=== PATIENT | male | born 1955 | race Caucasian/White ===

== ENCOUNTER 2018-03-03 11:18 | Emergency (ER) | payer OTHER ==
[~2018-03-03] VITALS: Ht 182.9 cm; Wt 97.3 kg
[2018-03-03] MEDS ORDERED: CEPH-572 PO (12:58)
[2018-03-03 13:15] VITALS: BP 104/64
== END 2018-03-03 13:17 | disposition home or self-care (01) ==
LOC: ER 11:19
DX: L53.8 Other specified erythematous conditions (principal); T81.40XA Infection following a procedure, unspecified, initial encounter; I10 Essential (primary) hypertension; F17.200 Nicotine dependence, unspecified, uncomplicated; Z98.890 Other specified postprocedural states; Y92.9 Unspecified place or not applicable
CPT/HCPCS: 93005; 99283

== ENCOUNTER 2018-03-27 13:19 | Inpatient (IN) | payer OTHER ==
[~2018-03-27] VITALS: Ht 182.9 cm; Wt 90.0 kg
[2018-03-27] MEDS ORDERED: aspirin 81mg tab.chew PO ONE (13:20)
[2018-03-27 13:48] LABS: BASOPHILS % (AUTO) 0.1 % (0-1); EOSINOPHILS % (AUTO) 0.1 % (0-6); HEMATOCRIT 33.2 % (42.0-52.0); HEMOGLOBIN 10.6 g/dl (14.0-17.9); MEAN CORPUSCULAR HEMOGLOBIN 27.5 PG (27.0-31.0); MEAN CORPUSCULAR HGB CONC 32.1 % (33.0-36.5); MEAN CORPUSCULAR VOLUME 85.8 FL (78-98); MEAN PLATELET VOLUME 8.6 FL (7.4-10.4); MONOCYTES # (AUTO) 1.5 X10'3 (0-0.9); MONOCYTES % (AUTO) 7.5 % (2-12); NEUTROPHILS # (AUTO) 17.3 X10'3 (1.8-7.7); NEUTROPHILS % (AUTO) 87.3 % (42-75); PLATELET COUNT 461 X10'3 (140-440); RED BLOOD COUNT 3.87 X10'6 (4.70-6.10); RED CELL DISTRIBUTION WIDTH 17.2 % (11.5-14.5); WHITE BLOOD COUNT 19.8 X10'3 (4.5-11.0)
[2018-03-27 14:10] LABS: ALANINE AMINOTRANSFERASE 21 U/L (12-78); ALBUMIN 3.3 G/DL (3.4-5.0); ALBUMIN/GLOBULIN RATIO 0.6 (1.1-1.5); ALKALINE PHOSPHATASE 96 IU/L (46-116); ANION GAP 14 (8-16); ASPARTATE AMINO TRANSFERASE 10 U/L (10-37); BILIRUBIN,TOTAL 0.8 MG/DL (0.1-1.0); BLOOD UREA NITROGEN 39 MG/DL (7-18); BUN/CREATININE RATIO 21.4 (5.4-32.0); CALCIUM 9.6 MG/DL (8.5-10.1); CHLORIDE 97 MMOL/L (99-107); CREATININE 1.82 MG/DL (0.60-1.10); GLUCOSE 110 MG/DL (70-104); POTASSIUM 3.8 MMOL/L (3.5-5.1); SODIUM 136 MMOL/L (135-145); TOTAL CARBON DIOXIDE 25.1 MMOL/L (24-32); TOTAL PROTEIN 8.4 G/DL (6.4-8.2); eGFR 38 ML/MIN
[2018-03-27 14:11] LABS: MAGNESIUM 1.9 MG/DL (1.5-2.4)
[2018-03-27 14:11] LABS: D-DIMER 4.24 MG/L FEU (0-0.50)
[2018-03-27] MEDS ORDERED: vancomycin inj 1,000 MG in normal saline 250ml IV soln 250 ML IV STA (14:56)
[2018-03-27] MEDS ORDERED: piperacillin/tazo 3.375gm/50ml 50 ML IV ONE (15:00)
[2018-03-27] MEDS ORDERED: vancomycin/NS 1 GM ADD-VANTAGE 250 ML IV ONE (15:05)
[2018-03-27] MEDS ORDERED: METO50TA17 PO (15:18)
[2018-03-27] MEDS ORDERED: FURO40TA4 PO (15:18)
[2018-03-27] MEDS ORDERED: AMIO200T36 PO (15:18)
[2018-03-27] MEDS ORDERED: thyroid (15:18)
[2018-03-27] MEDS ORDERED: POTA10TA19 PO (15:18)
[2018-03-27] MEDS ORDERED: LOSA1TAB9 PO (15:18)
--- NOTE | 2018-03-27 15:42 | NUR ---
lab called to confirm blood culture draw
[2018-03-27] MEDS ORDERED: normal saline 1000ML IV soln IVB ONE ×2 (17:05→18:40)
[2018-03-27] MEDS ORDERED: magnesium Cl slow-release 64mg tablet PO PRN (18:40)
[2018-03-27] MEDS ORDERED: sodium phosphate inj. 30 MMOL in dextrose 5%-water 250 ML IV PRN (18:40)
[2018-03-27] MEDS ORDERED: ondansetron/PF 4mg/2ml inj IV PRN (18:40)
[2018-03-27] MEDS ORDERED: morphine 4 MG/ML inj SYRINge IV PRN (18:40)
[2018-03-27] MEDS ORDERED: potassium Cl 20 mEq SR tablet PO PRN (18:40)
[2018-03-27] MEDS ORDERED: Neutra Phos packet PO PRN (18:40)
[2018-03-27] MEDS ORDERED: sodium phosphate inj. 15 MMOL in dextrose 5%-water 150 ML IV PRN (18:40)
[2018-03-27] MEDS ORDERED: magnesium 4gm in 100ml NS 100 ML IV PRN ×2 (18:40→19:00)
[2018-03-27] MEDS ORDERED: acetaminophen 325mg tablet PO PRN ×2 (18:40)
--- NOTE | 2018-03-27 18:54 | NUR ---
rn camp at bedside
[2018-03-27] MEDS ORDERED: POTASSIUM 40MEQ/500ML NS *****PERIPHERAL LINE REPLACE IV PRN (19:00)
[2018-03-27] MEDS ORDERED: magnesium 2 GM in 50ml IV PRN (19:00)
[2018-03-27] MEDS: K, MAG and/or Phos replacement - Verify level? MC SCH (19:00)
[2018-03-27] MEDS ORDERED: LEVO150T PO (19:05)
[2018-03-27] MEDS: pantoprazole 40 MG vial IV SCH (19:55)
[2018-03-27 20:07] LABS: CLARITY,URINE CLEAR (Clear); COLOR,URINE YELLOW (Yellow); GLUCOSE, URINE NEGATIVE (Neg); KETONES,URINE NEGATIVE (Neg); LEUKOCYTE ESTERASE ,URINE NEGATIVE (Neg); NITRITES, URINE NEGATIVE (Neg); OCCULT BLOOD,URINE TRACE-INTACT (Neg); PH,URINE 5.5 (4.8-8.0); PROTEIN,URINE NEGATIVE (Neg); UA COLLECTION TYPE CLN CATCH MIDSTREAM; UROBILINOGEN,URINE 0.2 E.U/dL (0.2-1.0)
[2018-03-27 20:18] LABS: BACTERIA,URINE NONE SEEN /HPF (Neg); MUCUS STRANDS MODERATE /LPF (Neg); RBC,URINE 0-2 /HPF (0-2); SQUAMOUS EPITHELIAL CELL,UR FEW /LPF (FEW); WBC,URINE 0-4 /HPF (0-4)
[2018-03-27] MEDS ORDERED: LEVO150T8 PO (20:43)
[2018-03-27] MEDS ORDERED: vancomycin/NS 1 GM ADD-VANTAGE 250 ML X 1 DOSE IV ONE (21:15)
--- NOTE | 2018-03-27 21:41 | NUR ---
Patient in room ED 10. I have received report from KOBY Duran in the ER and had the opportunity to ask questions and assume patient care.
--- NOTE | 2018-03-27 22:00 | NUR ---
Patient arrived from ER on a gurney and was able to ambulate w/o help to the hospital bed. He is A&O x4, MCKEON and is appropriate. I will continue to monitor.
[2018-03-27 22:04] VITALS: BP 93/57
[2018-03-27] MEDS: normal saline 1000ml 1,000 ML IV SCH (22:52)
[2018-03-27 23:00] VITALS: BP 79/52
[2018-03-28] VITALS (24 sets, daily range): BP systolic 73–141; BP diastolic 49–76
[2018-03-28] MEDS: piperacillin/tazo 3.375gm/50ml 50 ML IV SCH ×4 (02:37→19:30)
[2018-03-28] MEDS: normal saline 1000ml 1,000 ML IV SCH ×3 (03:23→19:30)
--- NOTE | 2018-03-28 06:17 | NUR ---
Problems reprioritized. Patient report given, questions answered & plan of care reviewed with KOBY Oates.
--- NOTE | 2018-03-28 06:31 | NUR ---
Patient in room CICU 2006. I have received report from KOBY Brito and had the opportunity to ask questions and assume patient care.
[2018-03-28 06:36] LABS: BASOPHILS % (AUTO) 0.2 % (0-1); EOSINOPHILS # (AUTO) 0.1 X10'3 (0-0.9); EOSINOPHILS % (AUTO) 0.5 % (0-6); HEMATOCRIT 25.6 % (42.0-52.0); HEMOGLOBIN 8.1 g/dl (14.0-17.9); LYMPHOCYTES # (AUTO) 0.7 X10'3 (1.1-4.8); LYMPHOCYTES % (AUTO) 6.9 % (21-51); MEAN CORPUSCULAR HGB CONC 31.5 % (33.0-36.5); MEAN CORPUSCULAR VOLUME 85.7 FL (78-98); MONOCYTES # (AUTO) 1.1 X10'3 (0-0.9); MONOCYTES % (AUTO) 10.1 % (2-12); NEUTROPHILS # (AUTO) 8.8 X10'3 (1.8-7.7); NEUTROPHILS % (AUTO) 82.3 % (42-75); PLATELET COUNT 190 X10'3 (140-440); RED BLOOD COUNT 2.99 X10'6 (4.70-6.10); RED CELL DISTRIBUTION WIDTH 16.8 % (11.5-14.5); WHITE BLOOD COUNT 10.7 X10'3 (4.5-11.0)
[2018-03-28 06:42] LABS: ALANINE AMINOTRANSFERASE 15 U/L (12-78); ALBUMIN 2.3 G/DL (3.4-5.0); ALBUMIN/GLOBULIN RATIO 0.6 (1.1-1.5); ALKALINE PHOSPHATASE 79 IU/L (46-116); ANION GAP 14 (8-16); ASPARTATE AMINO TRANSFERASE 8 U/L (10-37); BILIRUBIN,TOTAL 0.5 MG/DL (0.1-1.0); BLOOD UREA NITROGEN 37 MG/DL (7-18); BUN/CREATININE RATIO 23.6 (5.4-32.0); CALCIUM 8.1 MG/DL (8.5-10.1); CHLORIDE 104 MMOL/L (99-107); CREATININE 1.57 MG/DL (0.60-1.10); GLUCOSE 101 MG/DL (70-104); MAGNESIUM 1.8 MG/DL (1.5-2.4); PHOSPHORUS 3.4 MG/DL (2.3-4.5); POTASSIUM 3.1 MMOL/L (3.5-5.1); SODIUM 139 MMOL/L (135-145); TOTAL CARBON DIOXIDE 21.1 MMOL/L (24-32); TOTAL PROTEIN 6.4 G/DL (6.4-8.2); eGFR 45 ML/MIN
[2018-03-28 07:17] LABS: TOTAL CELLS COUNTED 100
[2018-03-28 07:18] LABS: ANISOCYTOSIS 1+; PLATELET ESTIMATE NORMAL
[2018-03-28] MEDS: pantoprazole 40 MG vial IV SCH (07:53)
[2018-03-28] MEDS: K, MAG and/or Phos replacement - Verify level? MC SCH (07:53)
[2018-03-28] MEDS ORDERED: vancomycin/NS 1 GM ADD-VANTAGE 250 ML IV SCH (08:00)
[2018-03-28] MEDS: potassium Cl 20 mEq SR tablet PO PRN ×2 (08:02→21:34)
[2018-03-28] MEDS: vancomycin inj 1,250 MG in normal saline 250ml IV soln 250 ML IV SCH ×2 (09:54→21:34)
[2018-03-28] MEDS ORDERED: pneumococcal 23-VAL P-sac vacc 25 mcg/0.5ml vial IMVAC ONE (10:00)
--- NOTE | 2018-03-28 10:45 | NUR ---
Dr Esteevs and critical care team at bedside. Discussed patient status. He states he would like to see pt's blood pressure increased a little before he transfers him upstairs. He also states he wants to see BUN/Cr improved before he thinks about ordering another CT with contrast. States to continue hydration, start synthroid back up, ambulate and watch BP.
--- NOTE | 2018-03-28 13:15 | NUR ---
Dr Esteves made aware that BP has been more consistently in the 100s since this morning, per his request for update. States that pt is okay to be transferred to another floor and he will put in orders.
--- NOTE | 2018-03-28 14:28 | NUR ---
Malnutrition consult. Patient presents with no edema, no muscle weakness, eating well 75-100% of heart healthy diet. Appears well nourished with no visible fat or muscle wasting. Reports weight loss of 2-13 lbs recently. Noted that patient recently had increased dose of lasix prescribed to him three days prior to admission. Some weight loss likely r/t fluids from lasix. No malnutrition at this time. Will continue to follow. Addendum: 03/28/18 at [address] Amended: Links added.
--- NOTE | 2018-03-28 16:30 | NUR ---
Dr Gutierres at bedside and I told him that Dr Ruiz had rounded earlier in the afternoon and recommended that patient does not need to have repeat CT at this point per images, and asked me to pass on that information to Dr Esteves. Dr Esteves received information.
--- NOTE | 2018-03-28 18:26 | NUR ---
Problems reprioritized. Patient report given, questions answered & plan of care reviewed with KOBY Brito.
--- NOTE | 2018-03-28 18:47 | NUR ---
Patient in room CICU 2006. I have received report from KOBY Oates and had the opportunity to ask questions and assume patient care. Patient is A&O x4, MCKEON and is sitting up in chair eating dinner. I will continue to monitor.
[2018-03-28] MEDS: lactobacillus rhamnosus 10,000 MMU CELLS/CAPSULE PO SCH (19:30)
[2018-03-28] MEDS: morphine 4 MG/ML inj SYRINge IV PRN (22:35)
[2018-03-29] VITALS (13 sets, daily range): BP systolic 86–118; BP diastolic 58–84
[2018-03-29] MEDS: piperacillin/tazo 3.375gm/50ml 50 ML IV SCH ×2 (02:12→08:00)
[2018-03-29] MEDS: morphine 4 MG/ML inj SYRINge IV PRN (03:05)
[2018-03-29] MEDS: normal saline 1000ml 1,000 ML IV SCH ×2 (03:23→11:23)
[2018-03-29 05:28] LABS: BASOPHILS % (AUTO) 0.5 % (0-1); EOSINOPHILS # (AUTO) 0.3 X10'3 (0-0.9); HEMOGLOBIN 8.6 g/dl (14.0-17.9); LYMPHOCYTES # (AUTO) 0.7 X10'3 (1.1-4.8); LYMPHOCYTES % (AUTO) 8.4 % (21-51); MEAN CORPUSCULAR HEMOGLOBIN 27.3 PG (27.0-31.0); MEAN CORPUSCULAR HGB CONC 31.9 % (33.0-36.5); MEAN CORPUSCULAR VOLUME 85.4 FL (78-98); MEAN PLATELET VOLUME 10.1 FL (7.4-10.4); MONOCYTES % (AUTO) 11.9 % (2-12); NEUTROPHILS # (AUTO) 6.6 X10'3 (1.8-7.7); NEUTROPHILS % (AUTO) 76.2 % (42-75); PLATELET COUNT 175 X10'3 (140-440); RED BLOOD COUNT 3.17 X10'6 (4.70-6.10); RED CELL DISTRIBUTION WIDTH 16.7 % (11.5-14.5); WHITE BLOOD COUNT 8.7 X10'3 (4.5-11.0)
[2018-03-29 05:42] LABS: ALANINE AMINOTRANSFERASE 20 U/L (12-78); ALBUMIN 2.3 G/DL (3.4-5.0); ALBUMIN/GLOBULIN RATIO 0.5 (1.1-1.5); ALKALINE PHOSPHATASE 106 IU/L (46-116); ANION GAP 12 (8-16); ASPARTATE AMINO TRANSFERASE 16 U/L (10-37); BILIRUBIN,TOTAL 0.6 MG/DL (0.1-1.0); BLOOD UREA NITROGEN 18 MG/DL (7-18); BUN/CREATININE RATIO 15.4 (5.4-32.0); CALCIUM 8.3 MG/DL (8.5-10.1); CHLORIDE 106 MMOL/L (99-107); CREATININE 1.17 MG/DL (0.60-1.10); GLUCOSE 104 MG/DL (70-104); MAGNESIUM 1.8 MG/DL (1.5-2.4); POTASSIUM 3.8 MMOL/L (3.5-5.1); SODIUM 141 MMOL/L (135-145); TOTAL CARBON DIOXIDE 23.3 MMOL/L (24-32); TOTAL PROTEIN 6.6 G/DL (6.4-8.2); eGFR 63 ML/MIN
--- NOTE | 2018-03-29 06:36 | NUR ---
Problems reprioritized. Patient report given, questions answered & plan of care reviewed with KOBY Viera.
[2018-03-29] MEDS ORDERED: pantoprazole 40mg Tablet.DR PO SCH (07:30)
[2018-03-29] MEDS: K, MAG and/or Phos replacement - Verify level? MC SCH (07:45)
[2018-03-29] MEDS: lactobacillus rhamnosus 10,000 MMU CELLS/CAPSULE PO SCH (07:51)
[2018-03-29] MEDS ORDERED: amiodarone 200mg tablet PO SCH (08:00)
[2018-03-29] MEDS ORDERED: levoTHYROXINE 75mcg tablet PO SCH (08:00)
[2018-03-29] MEDS: vancomycin inj 1,250 MG in normal saline 250ml IV soln 250 ML IV SCH (10:15)
--- NOTE | 2018-03-29 10:19 | NUR ---
patient up and walking with me, we did two laps around the unit and he is now sitting up to the chair with at the bedside also. HR is 88 sinus and BP is 104/61
--- NOTE | 2018-03-29 10:47 | NUR ---
patient will discharge home today per Dr. Esteves, awaiting discharge orders at this time
--- NOTE | 2018-03-29 11:43 | NUR ---
patient discharging home, assisting him getting dressed at the bedside, IV removed
--- NOTE | 2018-03-29 12:01 | NUR ---
Patient discharged home with all belongings and driving patient home, follow up appointment is made with dr lin and discharge instructions and packet provided.
[2018-03-29] MEDS ORDERED: VANCOMYCIN LEVEL IV ONE (21:30)
== END 2018-03-29 13:33 | disposition home or self-care (01) | DRG 872 ==
LOC: ER 13:19 → ED HOLD 18:40 → CICU 2S 21:56
PROVIDERS: ADMIT Physician Assistant; ATTEND Internal Medicine Critical Care Medicine
DX: A41.9 Sepsis, unspecified organism (principal); N17.9 Acute kidney failure, unspecified; J90 Pleural effusion, not elsewhere classified; I95.9 Hypotension, unspecified; K57.90 Diverticulosis of intestine, part unspecified, without perforation or abscess without bleeding; E03.9 Hypothyroidism, unspecified; E86.0 Dehydration; I10 Essential (primary) hypertension; M43.6 Torticollis; Z95.828 Presence of other vascular implants and grafts; Z28.21 Immunization not carried out because of patient refusal; Z79.899 Other long term (current) drug therapy; Z79.890 Hormone replacement therapy; Z86.79 Personal history of other diseases of the circulatory system
CPT/HCPCS: 36415; 71045; 71250; 80053; 81001; 83605; 83735; 83880; 84100; 84145; 84484; 85025; 85379; 87040; 87070; 87502; 87503; 93005; 93306; 93970; 96365; 96368; 99285; C9113; G0378; J2270; J2543; J3370; J7030

== ENCOUNTER 2022-05-24 19:16 | Inpatient (IN) | payer MEDICARE, BC ==
[~2022-05-24] VITALS: Ht 182.9 cm; Wt 90.9 kg
[~2022-05-24 19:16] MED LIST: AMIO200T36 PO; LEVO150T PO
[2022-05-24 20:00] LABS: EOSINOPHILS % (AUTO) 0.1 % (0-6); HEMOGLOBIN 16.3 g/dl (14.0-17.9); LYMPHOCYTES # (AUTO) 0.7 X10'3 (1.1-4.8); MONOCYTES # (AUTO) 1.2 X10'3 (0-0.9); PLATELET COUNT 224 X10'3 (140-440)
[2022-05-24 20:02] LABS: BASOPHILS % (AUTO) 0.2 % (0-1); HEMATOCRIT 48.9 % (42.0-52.0); LYMPHOCYTES % (AUTO) 5.7 % (21-51); MEAN CORPUSCULAR HEMOGLOBIN 31.8 PG (27.0-31.0); MEAN CORPUSCULAR HGB CONC 33.3 g/dL (33.0-36.5); MEAN CORPUSCULAR VOLUME 95.6 FL (78-98); MEAN PLATELET VOLUME 8.8 FL (7.4-10.4); NEUTROPHILS # (AUTO) 10.4 X10'3 (1.8-7.7); RED BLOOD COUNT 5.12 X10'6 (4.70-6.10); RED CELL DISTRIBUTION WIDTH 14.6 % (11.5-14.5); WHITE BLOOD COUNT 12.4 X10'3 (4.5-11.0)
[2022-05-24 20:15] LABS: ALANINE AMINOTRANSFERASE 12 U/L (12-78); ALBUMIN 3.5 G/DL (3.4-5.0); ALBUMIN/GLOBULIN RATIO 0.9 (1.1-1.5); ALKALINE PHOSPHATASE 51 IU/L (46-116); ANION GAP 6 (8-16); ASPARTATE AMINO TRANSFERASE 18 U/L (10-37); BLOOD UREA NITROGEN 17 MG/DL (7-18); BUN/CREATININE RATIO 16.7 (5.4-32.0); CALCIUM 8.7 MG/DL (8.5-10.1); CHLORIDE 101 MMOL/L (99-107); CREATININE 1.02 MG/DL (0.60-1.10); GLUCOSE 112 MG/DL (70-104); POTASSIUM 4.2 MMOL/L (3.5-5.1); SODIUM 136 MMOL/L (135-145); TOTAL CARBON DIOXIDE 28.7 MMOL/L (24-32); TOTAL PROTEIN 7.5 G/DL (6.4-8.2); eGFR 73 ML/MIN
[2022-05-24] MEDS ORDERED: temazepam 15mg capsule PO PRN (21:00)
[2022-05-24] MEDS ORDERED: normal saline 1000ML IV soln IVB ONE (22:50)
[2022-05-24] MEDS ORDERED: ondansetron/PF 4mg/2ml inj IV ONE (22:50)
[2022-05-24] MEDS ORDERED: iohexol 300mg/ml 100ml inj. ONE (22:54)
--- NOTE | 2022-05-24 23:08 | NUR ---
went to CT via w/c and hazardous material technician
[2022-05-24] MEDS ORDERED: magnesium 4gm in 100ml NS 100 ML IV PRN (23:50)
[2022-05-24] MEDS ORDERED: magnesium Cl slow-release 64mg tablet PO PRN (23:50)
[2022-05-24] MEDS ORDERED: potassium Cl 40MEQ/1/2NS 520ml 520 ML IV PRN (23:50)
[2022-05-24] MEDS ORDERED: mag hydrox/Alum hydrox/simeth 30ml oral suspension PO PRN (23:50)
[2022-05-24] MEDS ORDERED: potassium Cl 20 mEq SR tablet PO PRN ×2 (23:50)
[2022-05-24] MEDS ORDERED: bisacodyl 10mg suppository rectal RC PRN (23:50)
[2022-05-24] MEDS ORDERED: HYDROcodone/acetaminophen 5mg/325mg tablet PO PRN (23:50)
[2022-05-24] MEDS ORDERED: acetaminophen 325mg tablet PO PRN ×2 (23:50)
[2022-05-24] MEDS ORDERED: ondansetron/PF 4mg/2ml inj IV PRN (23:50)
[2022-05-24] MEDS ORDERED: magnesium hydroxide 30ml (MOM) UD suspension PO PRN (23:50)
[2022-05-24] MEDS ORDERED: morphine 2 MG/ML inj. syringe IV PRN ×2 (23:50)
[2022-05-25] MEDS: piperacillin/tazo 3.375gm/50ml 50 ML IV SCH ×2 (01:03→08:00)
[2022-05-25] MEDS: normal saline 1000ml 1,000 ML IV SCH ×2 (01:04→08:41)
[2022-05-25] MEDS ORDERED: iohexol 350MG/ML 100ml bottle IV ONE (01:34)
[2022-05-25 02:25] LABS: CLARITY,URINE CLEAR (Clear); COLOR,URINE YELLOW (Yellow); GLUCOSE, URINE NEGATIVE (Neg); KETONES,URINE TRACE mg/dl (Neg); LEUKOCYTE ESTERASE ,URINE NEGATIVE (Neg); NITRITES, URINE NEGATIVE (Neg); OCCULT BLOOD,URINE NEGATIVE (Neg); PH,URINE 6.5 (4.8-8.0); PROTEIN,URINE NEGATIVE (Neg); UROBILINOGEN,URINE 0.2 E.U/dL (0.2-1.0)
[2022-05-25 02:30] LABS: UA COLLECTION TYPE NON-SPECIFIED
[2022-05-25] MEDS ORDERED: APIX5TAB3 PO (05:11)
[2022-05-25] MEDS ORDERED: SOTA80TA73 PO (05:11)
[2022-05-25] MEDS ORDERED: LOSA1TAB41 PO (05:11)
[2022-05-25] MEDS ORDERED: ROSU20TA31 PO (05:11)
[2022-05-25] MEDS ORDERED: TEST200V33 IM (05:12)
[2022-05-25] MEDS ORDERED: CHOL500049 PO (05:12)
[2022-05-25] MEDS ORDERED: docusate sod 100mg capsule PO SCH (08:00)
[2022-05-25] MEDS ORDERED: K and/or MAG REPLACEMENT MC SCH (08:00)
--- NOTE | 2022-05-25 08:25 | NUR ---
spoke to MD Johnson regarding Doctor Hasmukh's consult w/ patient this morning. Per MD Noe, pt was to be given coffee and if pt could pass gas, he was safe for d/c. This information was passed along to MD Johnson- pending MD Johnson to do phone consult with Md Noe and then call hotel staff member back for possible D/C
--- NOTE | 2022-05-25 09:36 | NUR ---
MD Salgado at bedside to cloveral pt for possible d/c Addendum: 05/25/22 at 0950 by MARIAN Koki
--- NOTE | 2022-05-25 09:49 | NUR ---
per MD Thakur, pt can likely be d/c after he has a BM
[2022-05-25 10:20] VITALS: BP 121/76
[2022-05-25 11:00] VITALS: BP 134/70
--- NOTE | 2022-05-25 12:44 | NUR ---
PAGER ID: [phone] MESSAGE: [id number], PT HAD MODERATE SIZED, LOOSE STOOL. PT REPORTS ABD TIGHTNESS AND THE PROMISE OF MORE TO COME. GOOD BOWEL SOUNDS. THANK YOU, HOPE [phone]
[2022-05-25] MEDS ORDERED: metoclopramide 5 mg/ml inj IV SCH (14:00)
[2022-05-25] MEDS ORDERED: METO5TAB85 PO (16:33)
--- NOTE | 2022-05-25 17:28 | NUR ---
PT STABLE FOR DISCHARGE PER MD.PT WAS GIVEN WARMED PRUNE JUICE, APPLE SAUCE AND BUTTER. PT SOON HAD BOWEL MOVEMENT X4 . PT EDUCATED ON DIET. PT EDUCATED ON WALKING TO DECREASE THE PRESSURE IN HIS ABD. DISCHARGE AND FOLLOW UP INSTRUCTIONS REVIEWED WITH PT AND . PT WAS OFFERED PAIN MEDICATIONS AND DECLINED. TELE BOX REMOVED. PIV REMOVED WITH TIP INTACT. PT TRANSFERRED TO PRIVATE VEHICLE BY HOSPITAL STAFF. PT DISCHARGED TO HOME.
== END 2022-05-25 17:04 | disposition home or self-care (01) | DRG 393 ==
LOC: ER 19:16 → ED HOLD 23:54 → UNDOADMIN 23:54 → ED HOLD 05-25 01:34 → EDBEDREQ 05-25 05:26 → ED HOLD 05-25 10:04 → PCU 3S 05-25 10:04
PROVIDERS: ADMIT Family Medicine; ATTEND Internal Medicine
PROC: BW211ZZ Computerized Tomography (CT Scan) of Abdomen and Pelvis using Low Osmolar Contrast (ICD-10-PCS; principal; 2022-05-24)
PROC: BW211ZZ Computerized Tomography (CT Scan) of Abdomen and Pelvis using Low Osmolar Contrast (ICD-10-PCS; 2022-05-25)
DX: K91.89 Other postprocedural complications and disorders of digestive system (principal); I71.02 Dissection of abdominal aorta; K56.7 Ileus, unspecified; E78.5 Hyperlipidemia, unspecified; K86.89 Other specified diseases of pancreas; E03.9 Hypothyroidism, unspecified; I48.0 Paroxysmal atrial fibrillation; I10 Essential (primary) hypertension; I25.10 Atherosclerotic heart disease of native coronary artery without angina pectoris; Z79.01 Long term (current) use of anticoagulants; Z79.899 Other long term (current) drug therapy; Z82.49 Family history of ischemic heart disease and other diseases of the circulatory system; Z85.828 Personal history of other malignant neoplasm of skin; Z88.5 Allergy status to narcotic agent
CPT/HCPCS: 36415; 71045; 71275; 74175; 74177; 80053; 81003; 83605; 84145; 85025; 87040; 87081; G0378; J2405; J2543; J2765; J3490; J7030; Q9967